=== PATIENT | male | born 1970 ===

== ENCOUNTER 2016-09-05 02:50 | Emergency (ER) | payer OTHER ==
[~2016-09-05] VITALS: Ht 180.3 cm; Wt 165.9 kg
[~2016-09-05 02:50] MED LIST: CEPH-512 PO; CLIN-78 PO; DALB500V IV; ECON15CR10 TOP; HYDR-4003 PO
[2016-09-05 02:52] VITALS: BP 123/76; PULSE 81; RESP 16; O2SAT 94
--- NOTE | 2016-09-05 03:08 | ED.REPORT ---
HPI-Chest Pain 40 and Over Date of Service Sep 05, 2016 ED Provider: Yvon Peace MD A 46 year old male with a history of lower extremity edema, MRSA, obesity, and stent placement presents to the ED complaining of cramping chest pain. The pain began suddenly two hours ago and is worsened by deep breaths. The pt admits to wheezing but denies nausea. The pt is also experiencing bilateral lower extremity swelling that is significantly worse on the left. The pt reports that this occurs fairly frequently and is usually diagnosed as an infection. Nursing Notes Stated Complaint: CHEST PAIN Chief Complaint: Chest Pain Nursing Notes Reviewed: Yes Allergies: Coded Allergies: No Known Allergies (Verified , 02/19/16) Scheduled Cephalexin (Keflex) 500 Mg Capsule 500 MG PO QID Cephalexin (Keflex) 500 Mg Capsule 500 MG PO QID Clindamycin (Clindamycin) 300 Mg Capsule 300 MG PO TID Clindamycin (Clindamycin) 300 Mg Capsule 300 MG PO QID Clindamycin HCl (Cleocin) 300 Mg Capsule 300 MG PO QID Dalbavancin HCl (Dalvance) 500 Mg Vial 500 MG IV ONCE To be infused on 02/13/15 at [facility] Econazole Nitrate (Econazole Nitrate) 15 Gm Cream..g. 1 APPL TOP BID Esomeprazole Magnesium (Nexium) 20 Mg Capsule.dr 20 MG PO BID Scheduled PRN Hydrocodone-Acetaminophen 5-325 mg (Hydrocodone-Acetaminophen 5-325 mg) 1 Each Tablet 1 TABLET PO Q6H PRN PRN For Pain Naproxen (Naprosyn) 500 Mg Tablet 500 MG PO BID PRN PRN For Pain General Time Seen by MD: 03:03 Chief Complaint Chest pain Hx Obtained From: Patient Arrived By: Walk-in Sudden in Onset?: Yes Onset Occurred: 1 - 4 hours ago Symptom Duration: Since onset Recent Healthcare: No recent hospitalization, Recent doctor visit Similar Sx Previous: No Past Medical History Past Medical History Recurrent L neprolithiasis Obesity Hx of MRSA Lower extremity edema Past Surgical History L stent placed 2013 in [place] and revised here Smoking History Current Some Day Smoker Social History Alcohol Use: "Social" Drug Use: Denies drug use Ambulatory Status Independent Review of Systems Constitutional: Denies: Fever Respiratory: Reports: Pleuritic pain, Wheezing Cardiovascular: Reports: Chest pain GI: Denies: Abdominal pain Musculoskeletal: Reports: Extremity swelling Complete sys rev & neg: except as marked. Physical Exam Initial Vital Signs Vital Signs (First) Date Time Temp Pulse Resp B/P Pulse Ox O2 Delivery O2 Flow Rate FiO2 09/05/16 02:52 36.3 81 16 123/76 94 Room Air Initial VS: Reviewed General/Constitutional: Awake, Alert Appearance / Presentation: Positive: Obese Respiratory / Chest: Atraumatic, Breath sounds = bilat obvious wheezing prolonged expiratory phase splinting and uncomfortable Cardiovascular: Heart rate NL, Regular rhythm, Heart sounds NL Abdomen: Atraumatic, Soft, Non-tender Neck: Atraumatic, Supple, Full range of motion Back: Atraumatic, Full range of motion Lower Extremity / Pelvis / MS: Full range of motion bilateral lower extremity edema R>L right lower extremity erythema and cellulitis Skin: Atraumatic, Warm, Dry Neurologic: Oriented X3, Speech NL, No motor deficits, No sensory deficits Psychiatric: Affect NL, Mood NL Head / Eyes: Atraumatic, Normocephalic, PERRL, EOMI ENT: Atraumatic, Airway patent, Mucous membranes moist Upper Extremity / MS: Atraumatic, Full range of motion Interpretation & Diagnostics Interpretation & Diagnostics: CT Pulmonary Angiogram: CONCLUSION: No CT evidence of large ventral pulmonary emboli small peripheral emboli cannot be excluded. No acute intrathoracic pathology. Lab Results Interpretation Result Diagram: 09/05/16 0309 09/05/16 0309 Test 09/05/16 03:09 09/05/16 03:40 09/05/16 06:40 White Blood Count 11.7th/mm3 (3.8-10.1) Red Blood Count 5.99mil/mm3 (4.40-5.80) Hemoglobin 16.2g/dL (13.8-17.2) Hematocrit 49.5% (41.0-50.0) Mean Corpuscular Volume 82.6fL (81-100) Mean Corpuscular Hemoglobin 27.0pg (27.0-35.0) Mean Corpuscular Hemoglobin Concent 32.7% (32.0-37.0) Red Cell Distribution Width 15.5% (12.3-15.4) Platelet Count 296bil/L (150-400) Neutrophils (%) (Auto) 54.0% (40-74) Lymphocytes (%) (Auto) 32.4% (14-46) Monocytes (%) (Auto) 10.4% (4-12) Eosinophils (%) (Auto) 2.2% (0-5) Basophils (%) (Auto) 0.3% (0-3) Prothrombin Time 9.8sec (8.1-12.5) Prothromb Time International Ratio 0.92ratio Activated Partial Thromboplast Time 27.6sec (22.8-33.0) Sodium Level 140mEq/L (134-144) Potassium Level 3.8mEq/L (3.5-5.2) Chloride Level 100mEq/L (97-108) Carbon Dioxide Level 25mmol/L (18-29) Blood Urea Nitrogen 15mg/dL (6-24) Creatinine 0.99mg/dL (0.76-1.27) Estimat Glomerular Filtration Rate 87mL/min (>59) Glucose Level 114mg/dL (60-99) Lactic Acid Level 1.1mmol/L (0.4-2.0) Calcium Level 9.2mg/dL (8.5-10.1) Magnesium Level 2.3mg/dL (1.6-2.6) Total Bilirubin 0.2mg/dL (0.0-1.2) Aspartate Amino Transf (AST/SGOT) 18U/L (0-50) Alanine Aminotransferase (ALT/SGPT) 23U/L (0-44) Alkaline Phosphatase 67U/L (25-150) Pro-B-Type Natriuretic Peptide 5.00pg/mL (0-86) Total Protein 8.0g/dL (6.4-8.4) Albumin 4.4g/dL (3.4-5.0) Procalcitonin 0.04ng/mL (0.00-0.08) Hold Dias Top Tube Received (Received) Troponin T 0.010ug/L (0.0-0.011) ECG Interpretation ECG Interpretation: normal sinus rhythm with a rate of 93 probable RVH Time: 03:02 Interpreted by: ED physician X-Ray Chest Interpretation Chest Xray Interpretation: minor atelectasis in right base Interpretation / Wet Read by: Wet read ED physician Re-Eval/Medical Decision Med Decision/Clinical Course 46-year-old with chronic edema and intermittent cellulitis presents with a pleuritic chest pain in the setting of worsening edema equally of his left leg. He has worsening cellulitis there. CT of his chest does not show any evidence of pulmonary embolus. EKG and troponins are negative 2. This appears to be of pleuritic chest pain is not cardiac in character or by evaluation. Resume clindamycin for cellulitis. Leg elevation stressed. Discussed with family to assist with his compliance. Discharge in stable condition. Source of Hx: Old records Counseled Regarding: Diagnosis, Lab results, Need for follow-up, When/why to return to ED Discharge & Departure Disposition: Home Discharge Condition All VS Reviewed: Yes Condition: Stable Additional Instructions: Elevate your legs whenever possible to reduce swelling and tension on the skin. Clindamycin four times daily. Keflex four times daily. Follow-up with your doctor in the office Naprosyn twice daily for pain. Prilosec twice daily. Referrals: Myrna Chappell PA-C (PCP) Kevin Attestation Portions of this note were transcribed by Vidal Rojas. I, Dr. Peace personally performed the history, physical exam and medical decision-making; I reviewed and confirmed the accuracy of the information in the transcribed note. Signed by: Kevin Tipton, 09/05/2016 and 0324. copies to: Myrna Chappell PA-C, Christopher W MD Sep 05, 2016 03:08 VIDAL ROJAS Sep 05, 2016 03:24
[2016-09-05] MEDS ORDERED: Albuterol-Ipratropium 3 mL Inhalation Solution NEB ONE (03:10)
[2016-09-05] MEDS ORDERED: Albuterol 2.5 mg/3 mL Inhalation Solution NEB ONE (03:10)
[2016-09-05 03:14] VITALS: BP 142/79; PULSE 93; RESP 17; O2SAT 93
[2016-09-05 03:21] VITALS: PULSE 82; RESP 14; O2SAT 95
[2016-09-05 03:22] LABS: BASOPHILS % (AUTO) 0.3 % (0-3); EOSINOPHILS % (AUTO) 2.2 % (0-5); MONOCYTES % (AUTO) 10.4 % (4-12); Mean Corpuscular Volume 82.6 fL (81-100); Platelet Count 296 bil/L (150-400)
[2016-09-05] MEDS ORDERED: Dexamethasone Inj 10 MG in 0.9% Sodium Chloride-Pha MIX 50 ML IV ONE (03:25)
[2016-09-05 03:39] LABS: INR 0.92 ratio
[2016-09-05 03:52] LABS: TROPONIN T 0.01 ug/L (0.0-0.011)
[2016-09-05 04:03] LABS: Magnesium 2.3 mg/dL (1.6-2.6)
[2016-09-05 05:59] VITALS: BP 135/72; PULSE 93; RESP 20; O2SAT 95
[2016-09-05] MEDS ORDERED: Clindamycin Inj 900 MG in IV Premix 1 EACH IV ONE (06:20)
[2016-09-05] MEDS ORDERED: cefTRIAXone Inj 2,000 MG in Dextrose 5% Minibag Plus 50 ML IV ONE (06:20)
[2016-09-05 07:08] VITALS: BP 138/66; PULSE 91; RESP 17; O2SAT 88; O2SAT 92
[2016-09-05] MEDS ORDERED: ESOM20CA28 PO (07:40)
[2016-09-05] MEDS ORDERED: CLIN300C3 PO (07:40)
[2016-09-05] MEDS ORDERED: CEPH-512 PO (07:40)
[2016-09-05] MEDS ORDERED: NAPR500T PO (07:40)
[2016-09-05 07:45] VITALS: BP 121/41; PULSE 94; RESP 28; O2SAT 93
--- NOTE | 2016-09-05 08:28 | DRSVH ---
PROCEDURE: CT ANGIO CHEST PULMONARY EMBOLISM ([id number]) INDICATIONS: cp sob peripheral edema TECHNIQUE: After the administration of intravenous contrast, 2 mm thick sections acquired from the pulmonary api boubacar to the posterior costophrenic angles. 3-dimensional maximum intensity projection (MIP) coronal a nd sagittal reformats were then acquired through the thorax. For radiation dose reduction, the follo wing was used: automated exposure control, adjustment of mA and/or kV according to patient size. COMPARISON: [facility], CR, XR CHEST 1VW (PORTABLE), 09/05/2016, 3:13. FINDINGS: Image quality: Diagnostic sensitivity study for pulmonary embolus limited secondary to suboptimal art john contrast opacification and patient motion artifact. Pulmonary arteries: Pulmonary arteries are normal in size, and demonstrate no intraluminal filling d efects to suggest central pulmonary embolism. Lungs and pleura: Lungs are clear. No pleural effusions or pneumothorax. Central and peripheral ai rways are patent. Mediastinum: Heart size is normal, without pericardial effusion. No mediastinal or hilar adenopathy . Thoracic aorta is normal in caliber and enhancement. Esophagus is normal in caliber, without hiat al hernia. Bones and chest wall: No suspicious bony lesions. Ribs and thoracic spine appear intact throughout. Thyroid gland is within normal limits. No axillary or supraclavicular adenopathy. Abdomen: Visualized upper abdominal solid organs appear normal in the early arterial phase of enhanc ement. IMPRESSION: 1. Diagnostic sensitivity the study is severely limited secondary to suboptimal pulmonary artery cont rast opacification and patient motion artifact. Within limitations of the study, no definite large ce ntral pulmonary embolism identified. Moderate-sized and small pulmonary emboli cannot be excluded. 2. No acute cardiopulmonary disease process identified. Dictated by: Barbara Carvalho MD, PhD on 09/05/2016 at 8:21 Approved by: Barbara Carvalho MD, PhD on 09/05/2016 at 8:26
--- NOTE | 2016-09-05 09:04 | DRSVH ---
PROCEDURE: X-RAY CHEST ONE VIEW, PORTABLE ([id number]) INDICATIONS: chest pain TECHNIQUE: One view of the chest was acquired. COMPARISON: [facility], CR, XR CHEST 1VW (PORTABLE), 06/05/2016, 19:35. FINDINGS: Surgical changes and devices: None. Lungs and pleura: No pleural effusions or pneumothorax. Lungs are clear. Mediastinum: Mediastinal contours appear normal. Heart size is normal. Bones and chest wall: No suspicious bony lesions. Overlying soft tissues appear unremarkable. IMPRESSION: No acute cardiopulmonary disease process. Dictated by: Barbara Carvalho MD, PhD on 09/05/2016 at 9:02 Approved by: Barbara Carvalho MD, PhD on 09/05/2016 at 9:02
== END 2016-09-05 07:50 | disposition home or self-care (01) ==
LOC: SED 02:50
DX: R07.81 Pleurodynia (principal); L03.116 Cellulitis of left lower limb; R60.9 Edema, unspecified; F17.200 Nicotine dependence, unspecified, uncomplicated; Z86.14 Personal history of Methicillin resistant Staphylococcus aureus infection
CPT/HCPCS: 36415; 71010; 71275; 80053; 83605; 83735; 83880; 84145; 84484; 85025; 85610; 85730; 87040; 87804; 93005; 94644; 96365; 96367; 96375; 99285; J0696; J1100; J1885; J7613; J7620; Q9967